=== PATIENT | female | born 1965 | race African-American/Black ===

== ENCOUNTER → 2017-11-27 | Day surgery (SDC) | payer OTHER ==
[~2017-11-27] VITALS: Ht 160 cm; Wt 68.9 kg
[~2017-11-27] MED LIST: ALPH-E-MIXED-4400 IU PO; ASPIRIN CHILDRE81 MG PO; FOLIC ACID 1 MG PO; NORCO 325 MG-51 TAB PO; PERCOCET 5-3251 EACH PO; VITAMIN D1000 IU PO
--- NOTE | 2017-12-04 17:05 | Operative Report ---
Operative/Inv Procedure Report Surgery Date: 11/27/17 Name of Procedure: Robotic mesh repair of incarcerated ventral incisional hernia Pre-Operative Diagnosis: Incarcerated ventral incisional hernia Post-Operative Diagnosis: Same Estimated Blood Loss: scant Surgeon/Special Education Tutor: Tyra IRENE,Dino NGUYỄN Anesthesia: general endotracheal tube Operative/Procedure Note Note: Patient was positioned supine on the table. After successful induction of general anesthesia the abdomen was clipped prepped and draped in usual sterile fashion. The abdominal skin is marked to guide where the mesh will lay, centered under the defect, and where the 3 8 mm robotic trochars will be positioned, centered in the left lateral abdomen along the anterior axillary line After injection of local anesthetic at a spot in the mid to lateral left subcostal area, a horizontal 1 cm incision was made with a 15 blade. Using the plastic pointed-tipped translucent 8 mm with a metal robotic trocar and the camera inserted, the abdominal wall was traversed through this incision, watching on the screen, as the trocar passes through the layers, alternating colors, yellow fat white fascia red muscle, until the tip just seems to powell the inner thin peritoneal layer. At that point, I stop pushing and check if it's open by turning on the gas. If the belly insufflates then you know you can advance that large trocar into an empty space more directly without injuring the viscera. The gas was turned on to 15 mm. At this point you can see the umbilical ventral defect. Next the 2 remaining 8 mm robotic trochars are placed. the abdominal wall in this area was quite scarred. The robot then is brought to the patient attached docked and targeted. The incarcerated fat and omentum was reduced. Then the peritoneal flap is started by scoring it measuring roughly 6 cm from the defect and then completing the incision with cautery keeping the flap thin paying particular care to not include the transversalis fascia or even the rectus sheath posterior leaf, and continuing that flap across, however in the middle because of the scarring we did have to "thicken" the flap by incorporating some of the posterior rectus sheath and staying in that plane, past the defect also on that side at least 6 cm, the defect was approximately 2. Also during this we noted suture from a transverse repair of an umbilical hernia which she had when she was much younger. This defect was then closed with a running continuous 0 V lock, absorbable, Also trying to incorporate some of the scar midline above and below it. We then chose a Velcro type of mesh not coated sized it to 12 cm marked the rough surface rolled up like a scroll and stuffed down one of the trochars centered it the mesh laid nicely and flat and then we closed it with a running 2 -0 V lock suture. Next we checked for hemostasis and then undocked letting the gas escape pulling out the instruments and the trochars these 3 incisions were small but where we could see fascia it was closed with 2-0 Vicryl suture, then closed the skin with subcuticular 4-0 Monocryl, and then Mastisol, Steri-Strips and Band-Aids. Overall estimated blood loss was minimal, lap and sponge counts were correct, wound expectancy was clean, IV fluids crystalloid, complications none, patient tolerated the procedure well, did not significantly cagle during extubation and was returned to the recovery room in satisfactory condition.
== END ==
LOC: STS 03:22
DX: K43.0 Incisional hernia with obstruction, without gangrene (principal); Z87.891 Personal history of nicotine dependence
CPT/HCPCS: 49655; 64488; S2900; C1781; C9290; J0131; J0690; J2250; J3490